=== PATIENT | male | born 1965 | race Caucasian/White ===

== ENCOUNTER 2023-05-30 17:40 | Emergency (ER) | payer OTHER ==
[~2023-05-30] VITALS: Ht 178.1 cm; Wt 65.9 kg
[2023-05-30 18:44] VITALS: TEMP 98.4
[2023-05-30 20:01] VITALS: BP 113/56; PULSE 74; RESP 18
[2023-05-30] MEDS ORDERED: AMOX TR/POT CLAV 875 MG/125 MG TABLET PO ONE (20:15)
== END 2023-05-30 20:22 ==
LOC: EMS 17:40
DX: T16.2XXA Foreign body in left ear, initial encounter (principal); H66.92 Otitis media, unspecified, left ear
CPT/HCPCS: 99284; Z7502